=== PATIENT | male | born 1995 | race African-American/Black ===

== ENCOUNTER 2022-02-04 12:20 | Emergency (ER) | payer MEDICAID ==
[~2022-02-04] VITALS: Ht 193 cm; Wt 77.0 kg
[2022-02-04 12:54] VITALS: BP 102/57
[2022-02-04] MEDS ORDERED: CEFTRIAXONE SODIUM 500 MG/VIAL IM ONE (13:45)
[2022-02-04] MEDS ORDERED: AZITHROMYCIN 500 MG TABLET PO ONE (13:45)
[2022-02-06 04:07] LABS: NEISSERIA GONORRHOEAE NAA Negative (Negative)
== END 2022-02-04 15:23 | disposition home or self-care (01) ==
LOC: ER 14:52
DX: Z20.2 Contact with and (suspected) exposure to infections with a predominantly sexual mode of transmission (principal)
CPT/HCPCS: 87491; 87591; 96372; 99283; J0696